=== PATIENT | female | born 1990 | race American Indian/Alaskan Native ===

== ENCOUNTER 2016-09-23 05:43 | Emergency (ER) | payer OTHER ==
[2016-09-23] MEDS ORDERED: TYLENOL ONE ×2 (06:01)
[2016-09-23] MEDS ORDERED: MOTRIN ONE (06:03)
[2016-09-23] MEDS ORDERED: MOTRIN PO ONE (06:09)
[2016-09-23 06:17] LABS: Basophils % (Auto) 0.4 % (0.0-1.8); Eosinophils % (Auto) 0.6 % (0.0-4.3); Hematocrit 38.3 % (30.3-42.9); Hemoglobin 12.3 gm/dl (10.1-14.3); Mean Corpuscular HGB Conc 32 % (30-34); Mean Corpuscular Hemoglobin 27 pg (28-32); Mean Corpuscular Volume 84 fl (79-97); Platelet Count 259 K/mm3 (140-440); Red Blood Count 4.56 M/mm3 (3.65-5.03); Red Cell Distribution Width 15.5 % (13.2-15.2)
[2016-09-23 06:28] LABS: Anion Gap 16 mmol/L; BUN/Creatinine Ratio 13.33; Blood Urea Nitrogen 8 mg/dL (7-17); Calcium 9.2 mg/dL (8.4-10.2); Carbon Dioxide 24 mmol/L (22-30); Chloride 99.6 mmol/L (98-107); Glucose 99 mg/dL (65-100); Potassium 3.6 mmol/L (3.6-5.0); Sodium 136 mmol/L (137-145)
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
[2016-09-23] MEDS ORDERED: DILAUDID IM ONE (07:36)
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
[2016-09-23] MEDS ORDERED: ZOFRAN ONE (08:01)
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
[2016-09-23 11:35] VITALS: BP 140/88
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
== END 2016-09-23 09:05 | disposition home or self-care (01) ==
LOC: ED 05:43
DX: S82.891A Other fracture of right lower leg, initial encounter for closed fracture (principal); F12.10 Cannabis abuse, uncomplicated; Z21 Asymptomatic human immunodeficiency virus [HIV] infection status; V09.9XXA Pedestrian injured in unspecified transport accident, initial encounter; Y93.9 Activity, unspecified; Y92.9 Unspecified place or not applicable; Y99.9 Unspecified external cause status
CPT/HCPCS: 29515; 36415; 72170; 73552; 73562; 73590; 73610; 80048; 84703; 85025; 96372; 99284; J1170; J2405